=== PATIENT | female | born 1970 | race Caucasian/White ===

== ENCOUNTER 2018-02-12 15:08 | Emergency (ER) | payer OTHER ==
[2018-02-12] MEDS ORDERED: NS 0.9% 1000 ML* 1,000 ML IV ONE (16:28)
[2018-02-12] MEDS ORDERED: Ketorolac INJ* 30 MG/ML 1 ML VIAL IV PUSH ONE (16:42)
--- NOTE | 2018-02-12 16:57 | ED ---
GI/ HPI - HPI Summary HPI Summary: Patient is a 47-year-old female who presents emergency department for menorrhagia. Patient states she has a history of heavy menstrual cycles and started her normal period 3 days ago. She states that today bleeding worsened and she developed right lower quadrant abdominal pain. Patient felt dizzy, lightheaded, dehydrated when she called her [employer] who instructed her to come to the emergency department. Patient has no significant medical history. She did have a D&C for menorrhagia almost 2 months ago. Symptoms are moderate in severity. No current modifying factors. Patient states she is soaking a heavy overnight pad every 1 hour. - History of Current Complaint Hx Obtained From: Patient Pain Intensity: 4 <Wilfrido Garcia - Last Filed: 02/12/18 18:03> <Elias Blunt - Last Filed: 02/12/18 18:53> - History of Current Complaint Chief Complaint: EDVaginalBleeding Time Seen by Provider: 02/12/18 16:28 Stated Complaint: VAGINAL BLEEDING - Allergy/Home Medications Allergies/Adverse Reactions: Allergies Allergy/AdvReac Type Severity Reaction Status Date / Time No Known Allergies Allergy Verified 02/12/18 15:26 Home Medications: Home Medications Citalopram TAB* [CeleXA TAB*] 20 mg PO DAILY 02/12/18 [History Confirmed ] Levothyroxine TAB* [Synthroid TAB*] 125 mcg PO DAILY 02/12/18 [History Confirmed 02/12/18] Multivitamins/Minerals TAB* [Theragran/minerals TAB*] 1 tab PO DAILY 02/12/18 [ History Confirmed 02/12/18] PMH/Surg Hx/FS Hx/Imm Hx Previously Healthy: Yes Endocrine/Hematology History: Denies: Hx Diabetes Cardiovascular History: Denies: Hx Hypertension, Hx Pacemaker/ICD Respiratory History: Denies: Hx Asthma History: Denies: Hx Renal Disease Sensory History: Denies: Hx Hearing Aid Psychiatric History: Denies: Hx Panic Disorder - Cancer History Hx Chemotherapy: No Hx Radiation Therapy: No - Surgical History Surgery Procedure, Year, and Place: RIGHT SH, TUBAL, Infectious Disease History: No Infectious Disease History: Denies: Traveled Outside the [place] in Last 30 Days - Social History Occupation: Employed Full-time Lives: With Family Alcohol Use: Rare Substance Use Type: Reports: None Smoking Status (MU): Never Smoked Tobacco <Wilfrido Garcia - Last Filed: 02/12/18 18:03> Review of Systems Positive: Abdominal Pain All Other Systems Reviewed And Are Negative: Yes <JoseWilfrido - Last Filed: 02/12/18 18:03> Physical Exam Triage Information Reviewed: Yes Vital Signs On Initial Exam: Initial Vitals Temp Pulse Resp BP Pulse Ox 98.7 F 80 16 125/91 99 02/12/18 15:23 02/12/18 15:23 02/12/18 15:23 02/12/18 15:23 02/12/18 15:23 Vital Signs Reviewed: Yes Appearance: Positive: Well-Appearing - Patient sitting up in bed in no acute distress. Pleasant. Skin: Positive: Warm, Dry Eyes: Positive: Normal ENT: Positive: Other - Mouth is dry and lips are chapped. Neck: Positive: Supple Cardiovascular: Positive: Normal, RRR Abdomen Description: Positive: Other: - Abdomen is soft with mild tenderness to the right lower quadrant. No rebound tenderness or guarding. Pelvic Exam: Positive: Other - Pelvic exam performed with patient's nurse present in room, [place]. External genitalia is unremarkable. Speculum exam reveals a mild to moderate amount of bleeding from the cervix. No clots noted. Neurological: Positive: Normal, CN Intact II-III Psychiatric: Positive: Affect/Mood Appropriate <Wilfrido Garcia - Last Filed: 02/12/18 18:03> Vital Signs On Initial Exam: Initial Vitals Temp Pulse Resp BP Pulse Ox 98.7 F 80 16 125/91 99 02/12/18 15:23 02/12/18 15:23 02/12/18 15:23 02/12/18 15:23 02/12/18 15:23 <Elias Blunt - Last Filed: 02/12/18 18:53> Diagnostics - Vital Signs Vital Signs Temp Pulse Resp BP Pulse Ox 02/12/18 15:23 98.7 F 80 16 125/91 99 - Laboratory Result Diagrams: 02/12/18 16:36 02/12/18 16:36 Lab Statement: Any lab studies that have been ordered have been reviewed, and results considered in the medical decision making process. <Wilfrido Garcia - Last Filed: 02/12/18 18:03> - Vital Signs Vital Signs Temp Pulse Resp BP Pulse Ox 02/12/18 15:23 98.7 F 80 16 125/91 99 - Laboratory Lab Results: Lab Results 02/12/18 02/12/18 Range/Units 16:36 16:36 WBC 5.3 (3.5-10.8) 10^3/ul RBC 4.13 (4.00-5.40) 10^6/ul Hgb 10.2 L (12.0-16.0) g/dl Hct 32 L (35-47) % MCV 77 L (80-97) fL MCH 25 L (27-31) pg MCHC 32 (31-36) g/dl RDW 22 H (10.5-15) % Plt Count 374 (150-450) 10^3/ul MPV 7.1 L (7.4-10.4) um3 Neut % (Auto) 51.6 (38-83) % Lymph % (Auto) 35.3 (25-47) % [place] % (Auto) 9.9 H (0-7) % Eos % (Auto) 2.5 (0-6) % Baso % (Auto) 0.7 (0-2) % Absolute Neuts (auto) 2.8 (1.5-7.7) 10^3/ul Absolute Lymphs (auto) 1.9 (1.0-4.8) 10^3/ul Absolute Monos (auto) 0.5 (0-0.8) 10^3/ul Absolute Eos (auto) 0.1 (0-0.6) 10^3/ul Absolute Basos (auto) 0 (0-0.2) 10^3/ul Absolute Nucleated RBC 0 10^3/ul Nucleated RBC % 0 Sodium 137 (135-145) mmol/L Potassium 3.9 (3.5-5.0) mmol/L Chloride 104 (101-111) mmol/L Carbon Dioxide 27 (22-32) mmol/L Anion Gap 6 (2-11) mmol/L BUN 14 (6-24) mg/dL Creatinine 0.81 (0.51-0.95) mg/dL Est GFR ( Amer) 96.7 (>60) Est GFR (Non-Af Amer) 75.2 (>60) BUN/Creatinine Ratio 17.3 (8-20) Glucose 97 (70-100) mg/dL Calcium 9.1 (8.6-10.3) mg/dL Total Bilirubin 0.20 (0.2-1.0) mg/dL AST 20 (13-39) U/L ALT 18 (7-52) U/L Alkaline Phosphatase 66 (34-104) U/L Total Protein 7.4 (6.4-8.9) g/dL Albumin 4.0 (3.2-5.2) g/dL Globulin 3.4 (2-4) g/dL Albumin/Globulin Ratio 1.2 (1-3) Beta HCG, Quant < 0.60 mIU/mL Result Diagrams: 02/12/18 16:36 02/12/18 16:36 Lab Statement: Any lab studies that have been ordered have been reviewed, and results considered in the medical decision making process. <Elias Blunt - Last Filed: 02/12/18 18:53> GIGU Course/Dx - Course Course Of Treatment: Patient presenting with menorrhagia, leg weakness, dizziness and right lower quadrant abdominal pain. She is afebrile with stable vital signs. We'll give IV fluids and IV Toradol. She is benign abdominal exam. Pelvic exam reveals a [id number] amount of bleeding. CBC today shows an H and H of 10.2 & 32 which is an improvement from her last CBC on 11/03 where H & H was 8.3 & 27. I spoke with pt.'s [employer] BU[employer]DER in [place], Dr. Grissom, and discussed case for further recommendations on treatment of menorrhagia. She states she does not recall pt. and cannot make any recommendations at this time. Since pt. is stable okay to f.u in [employer] office. Results discussed with pt. She is feeling better after fluids and medication. Advised to increase fluids. Pt. states she use to take iron and advised her to restart iron. Tylenol or motrin for pain as directed. To return to ER for worsening symptoms. Pt. understands and agrees with plan. - Diagnoses Differential Diagnoses - Female: Dehydration, DVB/Menopause <Wilfrido Garcia - Last Filed: 02/12/18 18:03> - Course Assessment/Plan: Dr. Albertina Grissom [employer] called back and she stated that the patient has not been seen by her. Finally we found out that the patient was seen by Dr. Swati Albarran. Therefore the patient will follow-up with her in the next couple days. Patient is hemoglobin STABLE alert and oriented 3. <Elias Blunt - Last Filed: 02/12/18 18:53> - Diagnoses Provider Diagnoses: Dysmenorrhea Discharge - Sign-Out/Discharge Documenting (check all that apply): Discharge/Admit/Transfer - Billing Disposition and Condition Condition: GOOD Disposition: Home <Wilfrido Garcia - Last Filed: 02/12/18 18:03> - Billing Disposition and Condition Condition: GOOD Disposition: Home <Elias Blunt - Last Filed: 02/12/18 18:53> - Discharge Plan Condition: Good Disposition: HOME Patient Education Materials: Menorrhagia (ED) Referrals: Nkechi Pickering MD [Primary Care Provider] - Additional Instructions: Call your [employer] tomorrow Dr Bonny Albarran [phone] to schedule a follow up appointment Increase fluids and rest Tylenol or Motrin for pain as directed Return to ER for increased pain, bleeding, chest pain, shortness of breath, syncope
[2018-02-12 16:59] LABS: ABS Basophils 0 10^3/ul (0-0.2); ABS Eosinophils 0.1 10^3/ul (0-0.6); ABS Lymphocytes 1.9 10^3/ul (1.0-4.8); ABS Monocytes 0.5 10^3/ul (0-0.8); ABS Neutrophils 2.8 10^3/ul (1.5-7.7); ABS Nucleated RBC 0 10^3/ul; Eosinophil % 2.5 % (0-6); Hematocrit 32 % (35-47); Hemoglobin 10.2 g/dl (12.0-16.0); Lymphocyte % 35.3 % (25-47); Mean Corpuscular HGB Conc 32 g/dl (31-36); Mean Corpuscular Hemoglobin 25 pg (27-31); Mean Corpuscular Volume 77 fL (80-97); Mean Platelet Volume 7.1 um3 (7.4-10.4); Nucleated Red Blood Cells % 0; Platelet Count 374 10^3/ul (150-450); Red Blood Count 4.13 10^6/ul (4.00-5.40); Red Cell Distribution Width 22 % (10.5-15); White Blood Count 5.3 10^3/ul (3.5-10.8)
[2018-02-12 17:16] LABS: EGFR Non-African American 75.2 (>60)
[2018-02-12 19:02] VITALS: BP 121/74
== END 2018-02-12 19:01 | disposition home or self-care (01) ==
LOC: ED 15:08
DX: N94.6 Dysmenorrhea, unspecified (principal); R10.31 Right lower quadrant pain; R42 Dizziness and giddiness; R53.1 Weakness
CPT/HCPCS: 36415; 80053; 84702; 85025; 96361; 96374; 99282; J1885